=== PATIENT | female | born 1960 | race Caucasian/White ===

== ENCOUNTER 2017-11-14 20:10 | Emergency (ER) | payer BC, OTHER ==
[~2017-11-14] VITALS: Ht 172.7 cm; Wt 82.3 kg
[2017-11-14 20:10] VITALS: TEMP 37; Ht 172.7 cm; Wt 82.3 kg
[2017-11-14] MEDS ORDERED: DIPHTHERIA/TETANUS/PERTUSSIS 0.5 ML SYR/VIAL IM. ONE (20:45)
[2017-11-14] MEDS ORDERED: XYLOCAINE 1%/SOD BICARB 20 ML VIAL INFIL ONE (20:45)
[2017-11-14] MEDS ORDERED: VALA500T39 PO (21:20)
[2017-11-14] MEDS ORDERED: ETHO250C PO (21:20)
[2017-11-14] MEDS ORDERED: PRT/20 PO (21:20)
[2017-11-14] MEDS ORDERED: VNTHFA/IN INH (21:22)
[2017-11-14] MEDS ORDERED: FLVHFA110 INH (21:23)
--- NOTE | 2017-11-14 21:33 | DIAGNOSTIC IMAGING REPORT ---
HEAD CT NONCONTRAST CT DOSE: 537.48 mGy.cm HISTORY: Fall. TECHNIQUE: Multiaxial CT images of the head were performed without the use of intravenous contrast. Automated exposure control was utilized for this study. A dose lowering technique was utilized adhering to the principles of ALARA. Comparison: None. Findings: The paranasal sinuses and mastoid air cells are clear. The calvarium and skull base are intact. The ventricles and sulci are within normal limits. There is no mass, hematoma, midline shift, or acute infarct. Impression: No acute intracranial abnormality. Electronically signed by: Basim Davis M.D. 11/14/2017 9:32 PM Dictated Date/Time: 11/14/2017 9:30 PM
[2017-11-14 22:00] VITALS: BP 137/75; PULSE 64; O2SAT 97
--- NOTE | 2017-11-15 00:09 | EMERGENCY ROOM VISIT NOTE ---
History Report prepared by Narda: Anna Pedroza Under the Supervision of: Dr. Aldo Mariano M.D. First contact with patient: 20:30 Chief Complaint: FALL Stated Complaint: FALL, LACERATION TO HEAD History of Present Illness The patient is a 57 year old female who presents to the Emergency Room with complaints of an episodic fall at 1930 today. The patient states that she was walking upstairs with her cocker spaniel in her right arm when the dog suddenly attempted to jump out of her arms, causing her to fall backwards down the stairs. She states the landed on carpeted gela, though smacked her head on a concrete fireplace. She reports a laceration to the back of her scalp. She denies any neck pain, though notes mild neck stiffness. She denies any back pain. She notes a mild headache. She denies taking any blood thinners. She takes Aleve as needed. She cannot recall when she last had a tetanus shot. She has a history of seizures. She denies any seizures today. She states that she recently overcame the flu. Source of History: patient Onset: 1929 Position: other (global ) Quality: other (fall) Timing: other (episodic) Associated Symptoms: + headache (mild), No neck pain, No back pain Note: She reports a laceration to the back of her scalp. She notes neck stiffness. Review of Systems See HPI for pertinent positives & negatives. A total of 10 systems reviewed and were otherwise negative. Past Medical & Surgical Medical Problems: (1) Bronchitis Family History Cancer Diabetes mellitus Heart disease Lung disease Seizures Social History Smoking Status: Never Smoker Smokeless Tobacco Use: No Alcohol Use: none Drug Use: none Marital Status: Housing Status: lives with significant other Occupation Status: employed Current/Historical Medications Scheduled Ethosuximide (Zarontin), 1 CAP PO TID Pantoprazole (Protonix), 20 MG PO DAILY Valacyclovir Hcl (Valtrex), 1 TAB PO DAILY Scheduled PRN Albuterol Hfa (Ventolin Hfa), 2-4 PUFFS INH Q6H PRN for SOB/Wheezing Fluticasone Propionate (Flovent Hfa), 2 PUFFS INH BID PRN for SOB/Wheezing Allergies Coded Allergies: No Known Allergies (Unverified , 11/14/17) Physical Exam Vital Signs Date Time Temp Pulse Resp B/P (MAP) Pulse Ox O2 Delivery O2 Flow Rate FiO2 11/14/17 22:00 64 18 137/75 97 11/14/17 20:10 37.0 77 18 139/91 98 Room Air Physical Exam Constitutional: Vital signs reviewed. Eyes: Pupils are equal round reactive to light. Conjunctiva are noninjected. ENT: Pharynx is clear without erythema or exudate. Mucous membranes are moist. Neck supple without meningeal signs. No midline tenderness to cervical spine. Respiratory: Clear to auscultation bilaterally. Breath sounds are equal bilaterally. Cardiovascular: Regular rate and rhythm. No rubs or gallops. GI: Soft, nondistended and nontender. Bowel sounds are present. Musculoskeletal: No peripheral edema. No lower extremity tenderness. No midline tenderness to thoracic or lumbosacral spine. Integumentary: No cyanosis. 3 cm laceration to left occipital scalp. Neurological: The patient is awake and alert. Cranial nerves II-XII are intact. Motor is 5 out of 5 all extremities. Sensation is intact to light touch all extremities. Normal speech. No pronator drift. Psychiatric: Normal affect. Medical Decision & Procedures ER Provider Diagnostic Interpretation: Radiology results as stated below per my review and the radiologist's interpretation: HEAD CT NONCONTRAST CT DOSE: 537.48 mGy.cm HISTORY: Fall. TECHNIQUE: Multiaxial CT images of the head were performed without the use of intravenous contrast. Automated exposure control was utilized for this study. A dose lowering technique was utilized adhering to the principles of ALARA. Comparison: None. Findings: The paranasal sinuses and mastoid air cells are clear. The calvarium and skull base are intact. The ventricles and sulci are within normal limits. There is no mass, hematoma, midline shift, or acute infarct. Impression: No acute intracranial abnormality. Electronically signed by: Basim Davis M.D. 11/14/2017 9:32 PM Dictated Date/Time: 11/14/2017 9:30 PM Medications Administered Medications (Trade) Dose Ordered Sig/Olivia Route Start Time Stop Time Status Last Admin Dose Admin Diphtheria/ Pertussis/Tetanus Vacc (Adacel Inj) 0.5 ml ONCE ONCE IM. 11/14/17 20:45 11/14/17 20:46 DC 11/14/17 21:59 0.5 ML Procedure Location: Scalp Total length: 3 cm Complexity: Simple Verbal consent was obtained after the risks and benefits were explained, including but not limited to bleeding, scarring, infection, pain. At this time, the risks of the procedure are less than the risks of NOT performing the procedure. A time out was taken and the correct patient and site identified. The target area was anesthetized with 5 ml of 1% lidocaine without epinephrine. Copious irrigation was performed using saline. The hair cleared from the wound, and a sterile field set. The wound was explored for foreign bodies and none found. Debridement was not performed. The wound edges were approximated using 5 surgical kingston in the standard fashion. Hemostasis and excellent approximation was achieved. No complications and the patient tolerated the procedure well. ED Course 2032: The patient was evaluated in room C4. A complete history and physical exam was performed. 2044: Ordered Lidocaine HCl 20 ml INFIL and Adacel 0.5 ml IM 2141: I reassessed the patient at this time. I performed a laceration repair. Please see procedural note. 2152: She is feeling better and resting comfortably. I discussed the results and treatment plan with the patient. I answered all pertaining questions that she had. She expressed understanding and verbalized agreement. The patient will be discharged home. Medical Decision This is a 57-year-old female presents wit a head injury. Differential diagnosis includes concussion, contusion, skull fracture, intracranial hemorrhage, laceration. I did perform a limited focused review of portions of the patient's old chart on the electronic medical record. The patient has had no prior visits to this hospital. I did evaluate the patient as noted above. I did treat patient with an Adacel IM injection. I did order a CT of the head. I did review the images myself as well as the radiology report as described above. There is no evidence of intracranial hemorrhage. I did repair the patient's laceration as described above. She was given head injury precautions and discharged in good condition. Head Trauma GCS Score: 15 Medication Reconcilliation Current Medication List: was personally reviewed by me Blood Pressure Screening Patient's blood pressure: Elevated blood pressure Blood pressure disposition: Referred to PCP Impression Primary Impression: Acute head injury Additional Impression: Scalp laceration Scribe Attestation The scribe's documentation has been prepared under my direct and personally reviewed by me in its entirety. I confirm that the note above accurately reflects all work, treatment, procedures, and medical decision making performed by me. Departure Information Dispostion Home / Self-Care Forms HOME CARE DOCUMENTATION FORM, IMPORTANT VISIT INFORMATION Patient Instructions ED Head Injury Closed, ED Laceration Scalp Stitch Or Stap, My [facility] Additional Instructions You have been examined and treated today on an emergency basis only. This is not a substitute for, or an effort to provide, complete comprehensive medical care. It is impossible to recognize and treat all injuries or illnesses in a single emergency department visit. It is therefore important that you follow up closely with your physician. Call as soon as possible for an appointment. Return for worsening symptoms or if you develop fever, numbness or weakness on one side of your body, difficulties with your speech or walking, or any other concerning symptoms. Your kingston need to be removed in 10 days by your physician. Problem Qualifiers Primary Impression: Acute head injury Encounter type: initial encounter Qualified Codes: S09.90XA - Unspecified injury of head, initial encounter Additional Impression: Scalp laceration Encounter type: initial encounter Qualified Codes: S01.01XA - Laceration without foreign body of scalp, initial encounter
== END 2017-11-14 22:00 | disposition home or self-care (01) ==
LOC: C.EDC 20:13
DX: S01.01XA Laceration without foreign body of scalp, initial encounter (principal); W10.9XXA Fall (on) (from) unspecified stairs and steps, initial encounter; Y93.01 Activity, walking, marching and hiking; Y99.8 Other external cause status; Z23 Encounter for immunization; Z83.3 Family history of diabetes mellitus; Z82.0 Family history of epilepsy and other diseases of the nervous system